=== PATIENT | female | born 1955 | race Caucasian/White ===

== ENCOUNTER → 2016-04-26 | Outpatient (CLI) | payer MEDICARE, OTHER ==
--- NOTE | 2016-04-26 14:46 | MR ---
MRI brain without contrast HISTORY: Headaches, R 51 Multiplanar multisequence imaging through the brain. No comparisons There is no restricted diffusion. There is no hemorrhage or hydrocephalus. There are normal vascular flow voids. Mild inflammatory change present in the maxillary and sphenoid sinuses, ethmoid air cells , mastoids on the left. There is no cerebellopontine angle mass, corpus callosum, pituitary, cervical medullary junction are within normal limits. Scattered hyperintensities are present within the deep white matter, subcortical white matter, approximately 5 in number on inversion recovery and T2-weight ed sequences. The orbits show symmetric appearance. IMPRESSION: Nonspecific white matter demyelination may be related to chronic small vessel ischemia, h ypertension, migraine headaches, follow-up as indicated. Mild sinus disease.
== END | disposition home or self-care (01) ==
LOC: RADMRIMAIN 10:00
PROVIDERS: ATTEND Nurse Practitioner Acute Care
DX: G37.9 Demyelinating disease of central nervous system, unspecified (principal)
CPT/HCPCS: 70551

== ENCOUNTER → 2016-04-27 | Outpatient (CLI) | payer MEDICARE, OTHER ==
--- NOTE | 2016-04-27 11:19 | MR ---
EXAMINATION TYPE: MR garrison/lsgarret wo con DATE OF EXAM: 04/27/2016 10:59 AM COMPARISON: NONE HISTORY: cervicalgia, lumbago per order. Headache with neck pain causing pain or weakness in both arm s and fingers per years per patient. Low back pain for years causing pain into bilateral buttocks and left side per patient. TECHNIQUE: Multiplanar, multisequence imaging of the cervical and lumbar spine are performed without IV contrast. FINDINGS: C-SPINE: FINDINGS: Sagittal images of the cervical spine show the craniocervical junction to appear within nor mal limits. The cervical and upper thoracic spinal cord is normal in course, caliber, and signal. Th ere is subtle grade 1 retrolisthesis of C5 on C6. Vertebral body heights are maintained. There is mod erate disc space narrowing C5-C6 and C6-C7 levels with mild to moderate spurring. Small posterior di sc herniations are seen at these levels on sagittal images. The bone marrow signal intensity is withi n normal limits. Axial images at C2-C3 level to appear within normal limits. Axial images at C3-C4 level show small left paracentral disc protrusion minimally effacing anterior t hecal sac, bilateral neural foramina remain patent. Axial images at C4-C5 level show left-sided uncovertebral facet degenerative changes causing mild to moderate left-sided neural foraminal narrowing. Right-sided neural foramen is patent. Spinal canal is preserved. Axial images at the C5-C6 level show spondylolisthesis with broad-based posterior disc protrusion. Th ere is effacement of the anterior thecal sac. Marginal spurring is also present contributing to mild to moderate left and moderate to severe right-sided neural foraminal narrowing. Axial images at the C6-C7 level show broad-based posterior disc protrusion mildly effacing anterior t hecal sac and causing asymmetric mild to moderate left-sided neural foraminal narrowing. Right-sided neural foramen is patent. Some marginal spurring is also present. Axial images at C7-T1 level are felt within normal limits. IMPRESSION: Multilevel degenerative changes in the cervical spine as detailed above with most pronoun beth findings noted at C5-C6 level. L-SPINE: Sagittal images of the lumbar spine show vertebral body heights and alignment to appear satisfactory. Multilevel disc desiccation is seen but disc space heights are fairly well-maintained there is incre ased signal posteriorly consistent with annular tear L5-S1 level on sagittal image 5. Small posterior disc herniation is present at this level on sagittal images. The conus medullaris is slightly lower in position ending at L1-L2 disc space level. No suspicious clumping of lumbosacral nerve roots is pr esent. The bone marrow signal intensity is overall slightly heterogeneous with some small scattered h emangiomas felt present. No significant spurring is seen. There is 1.2 cm Tarlov cyst posterior S2 ve rtebral body level on sagittal image 8 noted. Axial images at the T12-L1 level shows mild broad disc bulge with increased signal posteriorly consis tent with annular tear. There is minimal effacement of the anterior thecal sac. Bilateral neural fora rosaele are patent.. Axial images at the L1-L2,and L2-L3 levels show mild facet degenerative changes bilaterally otherwise are felt within normal limits. Axial images at the L3-L4 and L4-L5 level show mild to moderate facet degenerative changes bilaterall y but spinal canal is preserved and bilateral neural foramina are patent. Axial images at the L5-S1 level show central disc protrusion but spinal canal is preserved and bilate ral neural foramina are patent. Mild facet degenerative changes are present bilaterally at this level . IMPRESSION: Multilevel degenerative changes in the lumbar spine with findings most pronounced at L5-S 1 level seen. No significant herniation or nerve effacement is identified to account for patient's bi lateral radiculopathy type symptoms however
== END | disposition home or self-care (01) ==
LOC: RADMRIMAIN 10:05
PROVIDERS: ATTEND Nurse Practitioner Acute Care
DX: M50.21 Other cervical disc displacement, high cervical region (principal); M50.222 Other cervical disc displacement at C5-C6 level; M50.223 Other cervical disc displacement at C6-C7 level; M99.71 Connective tissue and disc stenosis of intervertebral foramina of cervical region; M43.12 Spondylolisthesis, cervical region; M51.27 Other intervertebral disc displacement, lumbosacral region; Z88.2 Allergy status to sulfonamides
CPT/HCPCS: 72141; 72148

== ENCOUNTER 2016-05-13 22:36 | Emergency (ER) | payer MEDICARE, OTHER ==
[2016-05-13] MEDS ORDERED: KETOROLAC 30 MG/ML 1 ML VIAL IVP STA (23:20)
[2016-05-13] MEDS ORDERED: ONDANSETRON 4 MG/2 ML VIAL IVP STA (23:20)
[2016-05-13] MEDS ORDERED: SODIUM CHLORIDE 0.9% 1,000 ML IV STA (23:20)
[2016-05-13] MEDS ORDERED: HYDROmorphone 1 MG/ML 1 ML SYRINGE IVP STA (23:20)
--- NOTE | 2016-05-13 23:21 | ED ---
Abdominal Pain HPI <ScottValentin - Last Filed: 05/14/16 03:01> - General Source: patient, family, RN notes reviewed Mode of arrival: ambulatory Limitations: no limitations <Margarita Rutledge - Last Filed: 05/14/16 10:30> - General Chief Complaint: Abdominal Pain Stated Complaint: Back Pain/with vomiting Time Seen by Provider: 05/13/16 23:00 - History of Present Illness Initial Comments: Patient is a 7-year-old male chief complaint of right sided back pain. Patient reports that she has a history of kidney stones. Patient reports that has been a few months and she's had scans. Patient reports that she's had this right sided back pain for the past 4 days. She reports that the pain is unmoving. She states that she was seen at [facility] yesterday and no urine showed any blood and lab work was negative. Patient was advised follow-up with her primary care provider. Patient reports the pain got worse. She states that she does see a crystal machining coordinator at [place]. She states she is also vomited a few times today. Patient reports she's had normal bowel movements. (Margarita Rutledge) - Related Data Home Medications Medication Instructions Recorded Confirmed Citalopram Hydrobromide [CeleXA] 30 mg PO DAILY 05/13/16 05/13/16 Levothyroxine Sodium [Levoxyl] 50 mcg PO DAILY 05/13/16 05/13/16 Ondansetron Odt [Zofran Odt] 4 mg PO Q8HR PRN 05/13/16 05/13/16 Topiramate [Topamax] 25 mg PO BID 05/13/16 05/13/16 oxyCODONE-APAP 5-325MG [Percocet 1 tab PO Q6HR PRN 05/13/16 05/13/16 5-325 mg] Previous Rx's Medication Instructions Recorded HYDROcodone/APAP 10-325MG [[place] 1 tab PO Q6H PRN #15 tab 05/14/16 10-325] Ketorolac [Toradol] 10 mg PO Q6HR #20 tab 05/14/16 Ondansetron [Zofran] 4 mg PO Q8HR PRN #8 tab 05/14/16 Allergies Allergy/AdvReac Type Severity Reaction Status Date / Time Sulfa (Sulfonamide Allergy Unknown Verified 05/13/16 22:48 Antibiotics) Childhood Review of Systems ROS Other: All systems not noted in ROS Statement are negative. <Valentin Chavez - Last Filed: 05/14/16 03:01> ROS Other: All systems not noted in ROS Statement are negative. <Margarita Rutledge - Last Filed: 05/14/16 10:30> ROS Statement: Those systems with pertinent positive or pertinent negative responses have been documented in the HPI. Past Medical History Additional Past Medical History / Comment(s): migraines, kidney stones History of Any Multi-Drug Resistant Organisms: None Reported Past Surgical History: Hysterectomy Additional Past Surgical History / Comment(s): lithrotripsy, polyps removed from nose and throat, Past Psychological History: Depression Smoking Status: Current every day smoker Past Alcohol Use History: None Reported Past Drug Use History: None Reported <Margarita Rutledge - Last Filed: 05/14/16 10:30> General Exam Limitations: no limitations <Margarita Rutledge - Last Filed: 05/14/16 10:30> Course <Valentin Chavez - Last Filed: 05/14/16 03:01> <Margarita Rutledge - Last Filed: 05/14/16 10:30> Vital Signs 05/13/16 05/13/16 05/14/16 22:44 23:57 01:07 Temperature 98.1 F 97.6 F Pulse Rate 73 75 67 Respiratory 20 16 16 Rate Blood Pressure 115/58 128/57 100/62 O2 Sat by Pulse 97 96 100 Oximetry 05/14/16 03:26 Temperature 97.8 F Pulse Rate 80 Respiratory 16 Rate Blood Pressure 122/72 O2 Sat by Pulse 96 Oximetry - Reevaluation(s) Reevaluation #1: 05/14/16 03:01 I did personally discuss the findings with the patient and her . CAT scan does show evidence of a 1 cm stone in the right ureter with smaller stones proximal. Patient pain is much improved at this time we did have a long discussion regarding options which included being admitted here to our urology service for keeping the follow-up appointment in [address] Bates at [facility] in [place], [place]. The patient has chosen to be discharged and follow-up with her doctor and she will return when necessary. She will get a copy of the CAT scan and report to take with them. Prescription for anti- inflammatory as well as narcotic pain medication be used when necessary she states she has plenty of Zofran at home. (Valentin Chavez) Medical Decision Making - Lab Data Result diagrams: 05/13/16 23:20 05/13/16 23:20 <Valentin Chavez - Last Filed: 05/14/16 03:01> - Lab Data Result diagrams: 05/13/16 23:20 05/13/16 23:20 - Radiology Data Radiology results: report reviewed <Margarita Rutledge - Last Filed: 05/14/16 10:30> - Medical Decision Making Patient is a 7-year-old female chief complaint of right flank pain for the past 3 days. She's had an controllable vomiting and nausea since then. She reports she has a history of kidney stones. CT of abdomen and pelvis reveals a 1 cm stone at the ureter junction. Patient reports that this is consistent with her pain. She reports it has not moved in the past 2 days. Patient reports that she does see a urologist at [facility]. I discussed this case with Dr. Chavez. Patient does have an elevated white count of 14. No evidence of kidney damage at this time. CT abdomen and pelvis also shows evidence of hydronephrosis. Patient elects to return home and follow up with her urology appointment on Sunday. PAtient had a converstation with DR. Chavez and made this discision. REturn parameteres discussed. Patient understands treatment plan will comply. (Margarita Rutledge) - Lab Data Lab Results 05/13/16 05/13/16 05/14/16 Range/Units 23:20 23:20 01:58 WBC 14.0 H (3.8-10.6) k/uL RBC 4.12 (3.80-5.40) m/uL Hgb 13.1 (11.4-16.0) gm/dL Hct 40.1 (34.0-46.0) % MCV 97.4 (80.0-100.0) fL MCH 31.8 (25.0-35.0) pg MCHC 32.6 (31.0-37.0) g/dL RDW 13.0 (11.5-15.5) % Plt Count 196 (150-450) k/uL Neutrophils % 88 % Lymphocytes % 6 % Monocytes % 5 % Eosinophils % 0 % Basophils % 0 % Neutrophils # 12.4 H (1.3-7.7) k/uL Lymphocytes # 0.8 L (1.0-4.8) k/uL Monocytes # 0.7 (0-1.0) k/uL Eosinophils # 0.0 (0-0.7) k/uL Basophils # 0.0 (0-0.2) k/uL Sodium 138 (137-145) mmol/L Potassium 4.1 (3.5-5.1) mmol/L Chloride 104 (98-107) mmol/L Carbon Dioxide 23 (22-30) mmol/L Anion Gap 11 mmol/L BUN 12 (7-17) mg/dL Creatinine 1.02 (0.52-1.04) mg/dL Est GFR (MDRD) Af Amer >60 (>60 ml/min/1.73 sqM) Est GFR (MDRD) Non-Af 55 (>60 ml/min/1.73 sqM) Glucose 144 H (74-99) mg/dL Calcium 9.1 (8.4-10.2) mg/dL Total Bilirubin 0.5 (0.2-1.3) mg/dL AST 18 (14-36) U/L ALT 33 (9-52) U/L Alkaline Phosphatase 93 (38-126) U/L Total Protein 6.5 (6.3-8.2) g/dL Albumin 3.7 (3.5-5.0) g/dL Amylase <30 L (30-110) U/L Lipase 71 (23-300) U/L Urine Color Yellow Urine Appearance Clear (Clear) Urine pH 6.0 (5.0-8.0) Ur Specific [place] 1.012 (1.001-1.035) Urine Protein Negative (Negative) Urine Glucose (UA) Negative (Negative) Urine Ketones 1+ H (Negative) Urine Blood Small H (Negative) Urine Nitrate Negative (Negative) Urine Bilirubin Negative (Negative) Urine Urobilinogen <2.0 (<2.0) mg/dL Ur Leukocyte Esterase Small H (Negative) Urine RBC 25 H (0-5) /hpf Urine WBC 15 H (0-5) /hpf Ur Squamous Epith Cells 3 (0-4) /hpf Urine Bacteria Rare H (None) /hpf Urine Mucus Rare H (None) /hpf - Radiology Data Multiple non obstructing stones in both kidneys. 1cm stone at right URJ with right hydronephrosis. (Margarita Rutledge) Disposition <Valentin Chavez - Last Filed: 05/14/16 03:01> Time of Disposition: 02:58 <Margarita Rutledge - Last Filed: 05/14/16 10:30> Clinical Impression: Nephrolithiasis, Hydronephrosis Disposition: HOME SELF-CARE Condition: Good Instructions: Kidney Stones (ED), Renal Colic (ED) Additional Instructions: advised to follow up with crystal machining coordinator and urologist as soon as possible. Return to the [facility] if any alarming symptoms occur. Prescriptions: HYDROcodone/APAP 10-325MG [Ellington 10-325] 1 tab PO Q6H PRN #15 tab PRN Reason: Pain Ketorolac [Toradol] 10 mg PO Q6HR #20 tab Ondansetron [Zofran] 4 mg PO Q8HR PRN #8 tab PRN Reason: Nausea And Vomiting Referrals: David Hayes DO [Primary Care Provider] - 1-2 days
[2016-05-13 23:52] LABS: Basophils % (A) 0 %; CH 32.4; CHCM 33.5; Eosinophils % (A) 0 %; HCT 40.1 % (34.0-46.0); HDW 2.52; HGB 13.1 gm/dL (11.4-16.0); Luc # (Auto) 0.09; Luc % (Auto) 1; Lymphocytes # (A) 0.8 k/uL (1.0-4.8); Lymphocytes % (A) 6 %; MCH 31.8 pg (25.0-35.0); MCHC 32.6 g/dL (31.0-37.0); MCV 97.4 fL (80.0-100.0); Mean Platelet Volume 9.6; Monocytes # (A) 0.7 k/uL (0-1.0); Monocytes % (A) 5 %; Neutrophils # (A) 12.4 k/uL (1.3-7.7); Neutrophils % (A) 88 %; RBC 4.12 m/uL (3.80-5.40)
[2016-05-13 23:59] VITALS: RESP 16
[2016-05-14 00:01] LABS: ALT 33 U/L (9-52); AST 18 U/L (14-36); Alkaline Phosphatase 93 U/L (38-126); Amylase <30 U/L (30-110); Anion Gap 11 mmol/L; Blood Urea Nitrogen 12 mg/dL (7-17); Calcium 9.1 mg/dL (8.4-10.2); Carbon Dioxide 23 mmol/L (22-30); Chloride 104 mmol/L (98-107); Glucose 144 mg/dL (74-99); Non-African American GFR(MDRD) 55 (>60 ml/min/1.73 sqM); Potassium 4.1 mmol/L (3.5-5.1); Sodium 138 mmol/L (137-145); Total Bilirubin 0.5 mg/dL (0.2-1.3); Total Protein 6.5 g/dL (6.3-8.2)
--- NOTE | 2016-05-14 01:49 | CT ---
EXAMINATION TYPE: CT abdomen pelvis wo con DATE OF EXAM: 05/14/2016 12:22 AM COMPARISON: NONE HISTORY: right flank pain CT DLP: 221.30 mGycm Automated exposure control for dose reduction was used. TECHNIQUE: Helical acquisition of images was performed from the lung bases through the pelvis. FINDINGS: LUNG BASES: Mild scarring and atelectasis in both lung bases. LIVER/GB: There is mild hepatomegaly. Gallbladder appears grossly unremarkable. PANCREAS: No significant abnormality is seen. SPLEEN: No significant abnormality is seen. ADRENALS: No significant abnormality is seen. KIDNEYS: Right kidney showed multiple nonobstructing opaque stones largest nonobstructing stone measuring 8 mm in the axial image 45. There is evidence of obstructing 1 cm stone in the proximal right ureter just below the UPJ with selena cent smaller 2 mm calculus. There is also evidence of 3 small calculi in the right renal pelvis with the largest stone measuring 5 mm. There is moderate right hydronephrosis. Distal right ureter showed no significant obstructing stones at present. Left kidney showed multiple nonobstructing opaque stones with the largest stone measuring 9 mm in the axial image 55. No hydronephrosis or hydroureter is noted on the left side. RETROPERITONEAL ADENOPATHY: None visualized REPRODUCTIVE ORGANS: Uterus is probably surgically absent. URINARY BLADDER: No significant abnormality is seen. PELVIC ADENOPATHY: None visualized. OSSEOUS STRUCTURES: Mild degenerative changes in the thoracal lumbar spine. BOWEL: No significant abnormality is seen. Visualized appendix is gas-filled and appears unremarkable. OTHER: Mild diffuse atherosclerotic calcification is noted in the abdominal aorta and iliac arteries. IMPRESSION: 1. THERE IS MODERATE right hydronephrosis with multiple obstructing stones in the proximal right uret er with the largest stone measuring 1 cm in the proximal right ureter just below the level of right U PJ. 2. Multiple nonobstructing opaque stones in both kidneys. 3. Visualized appendix appears unremarkable. 4. Hysterectomy changes. A phone report is given to Margarita Rutledge the PA at the time of the dictation.
[2016-05-14 02:02] LABS: Appearance,Urine Clear (Clear); Bacteria,Urine Rare /hpf; Bilirubin,Urine Negative (Negative); Glucose,Urine (UA) Negative (Negative); Ketones,Urine 1+ (Negative); Leukocyte Esterase,Urine Small (Negative); Mucus,Urine Rare /hpf; Nitrite,Urine Negative (Negative); Particle Count 1801; Protein,Urine Negative (Negative); RBC,Urine 25 /hpf (0-5); Specific Gravity,Urine 1.012 (1.001-1.035); Squamous Epithelial Cell,Urine 3 /hpf (0-4); UA Billing (MACRO vs. MICRO) MICRO; Urobilinogen,Urine <2.0 mg/dL (<2.0); WBC,Urine 15 /hpf (0-5)
[2016-05-14] MEDS ORDERED: KETOROLAC 30 MG/ML 1 ML VIAL IVP STA (02:57)
[2016-05-14] MEDS ORDERED: HYDROmorphone 1 MG/ML 1 ML SYRINGE IVP STA (02:57)
[2016-05-14] MEDS ORDERED: ONDANSETRON 4 MG ODT STARTER PACK 2 TAB BTL PO STA (03:07)
[2016-05-14 03:27] VITALS: BP 122/72; PULSE 80; TEMP 97.8
== END 2016-05-14 03:28 | disposition home or self-care (01) ==
LOC: EC 22:36
DX: N13.2 Hydronephrosis with renal and ureteral calculous obstruction (principal); G43.909 Migraine, unspecified, not intractable, without status migrainosus; F32.9 Major depressive disorder, single episode, unspecified; F17.200 Nicotine dependence, unspecified, uncomplicated; Z79.899 Other long term (current) drug therapy; Z88.2 Allergy status to sulfonamides
CPT/HCPCS: 36415; 80053; 82150; 83690; 85025; 81001; 74176; 99284; 96374; 96375 ×2; 96376 ×2; J2405; J1885 ×2; J1170 ×2; S0119

== ENCOUNTER → 2016-06-27 | Outpatient (CLI) | payer MEDICARE, OTHER ==
[2016-06-27 13:38] LABS: CH 32.1; CHCM 32.7; HCT 41.1 % (34.0-46.0); HDW 2.35; HGB 13.5 gm/dL (11.4-16.0); MCH 32.5 pg (25.0-35.0); MCV 98.6 fL (80.0-100.0); RBC 4.17 m/uL (3.80-5.40); RDW 13.4 % (11.5-15.5); WBC 7.4 k/uL (3.8-10.6)
[2016-06-27 13:49] LABS: Appearance,Urine Cloudy (Clear); Bacteria,Urine Rare /hpf; Bilirubin,Urine Negative (Negative); Glucose,Urine (UA) Negative (Negative); Ketones,Urine Negative (Negative); Leukocyte Esterase,Urine Large (Negative); Mucus,Urine Rare /hpf; Nitrite,Urine Negative (Negative); PH, Urine 5.5 (5.0-8.0); Particle Count 10669; Protein,Urine 1+ (Negative); RBC,Urine >182 /hpf (0-5); Specific Gravity,Urine 1.014 (1.001-1.035); Squamous Epithelial Cell,Urine <1 /hpf (0-4); UA Billing (MACRO vs. MICRO) MICRO; Urobilinogen,Urine <2.0 mg/dL (<2.0); WBC,Urine 45 /hpf (0-5)
[2016-06-27 13:59] LABS: ALT 36 U/L (9-52); AST 24 U/L (14-36); Alkaline Phosphatase 84 U/L (38-126); Anion Gap 9 mmol/L; Blood Urea Nitrogen 17 mg/dL (7-17); Calcium 9.5 mg/dL (8.4-10.2); Carbon Dioxide 27 mmol/L (22-30); Chloride 109 mmol/L (98-107); Glucose 78 mg/dL (74-99); Non-African American GFR(MDRD) >60 (>60 ml/min/1.73 sqM); Potassium 4.5 mmol/L (3.5-5.1); Sodium 145 mmol/L (137-145); Total Bilirubin 0.6 mg/dL (0.2-1.3); Total Protein 6.8 g/dL (6.3-8.2)
== END ==
LOC: LABWHC1 12:47
PROVIDERS: ATTEND Psychiatry & Neurology Psychiatry
DX: N39.0 Urinary tract infection, site not specified (principal)
CPT/HCPCS: 36415; 80053; 81001; 84439; 84443; 85027; 87086

== ENCOUNTER → 2016-12-13 | Outpatient (CLI) | payer MEDICARE, OTHER ==
--- NOTE | 2016-12-13 12:50 | P.HPOB ---
History of Present Illness H&P Date: 12/13/16 Chief Complaint: The patient is here for her routine gynecologic examination and mammogram. This is a 61-year-old with an LMP of 1985 who is status post ANG and unilateral oophorectomy for benign reasons. The patient had a small wart removed from the posterior aspect of the vaginal opening one year ago. She has not had any problem with this since then. She is without gynecologic complaints. Review of Systems Respiratory: she has occasional seasonal allergies. She denies cardiac or G.I. problems. Past Medical History Past Medical History: Thyroid Disorder (Hypothyroidism) Additional Past Medical History / Comment(s): migraines, kidney stones History of Any Multi-Drug Resistant Organisms: None Reported Past Surgical History: Hysterectomy (ANG with unilateral oophorectomy.) Additional Past Surgical History / Comment(s): lithrotripsy, polyps removed from nose and throat, colonoscopy in 2016 per the patient. Shoulder surgery in 2012 and tubal ligation at age 22. 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 She has history of a wart in the genital area but has no other history of STDs. Medications and Allergies Home Medications Medication Instructions Recorded Confirmed Type Citalopram Hydrobromide [CeleXA] 30 mg PO DAILY 05/13/16 05/13/16 History Levothyroxine Sodium [Levoxyl] 75 mcg PO DAILY 05/13/16 12/13/16 History Aspirin [Adult Low Dose Aspirin EC] 81 mg PO 12/13/16 History SUMAtriptan SUCCINATE [Imitrex] 100 mg PO 12/13/16 History Allergies Allergy/AdvReac Type Severity Reaction Status Date / Time Sulfa (Sulfonamide Allergy Unknown Verified 05/13/16 22:48 Antibiotics) Childhood Exam - Vital Signs Vital signs: Blood pressure 92/58, height 5 feet 2 1/2 inches, weight 150 pounds, temperature 98.0, pulse 85 This is a well-developed well-nourished white female who is alert and oriented times 3 in no acute distress. HEENT: Within normal limits. NECK: Supple without mass or thyromegaly. CHEST AND LUNGS: Clear to auscultation. HEART: Regular rate and rhythm. BREASTS: Are without mass or discharge. AXILLARY EXAM: Negative for adenopathy. BACK: Negative for CVA tenderness. ABDOMEN: Soft, nontender, without palpable masses. PELVIC EXAM: External genitalia appears normal with mild atrophy. Vagina appears normal with mild atrophy. There is no evidence of prolapse. Bimanual examination is negative for mass or tenderness. RECTAL EXAM: Rectovaginal exam is negative for mass or tenderness and is negative for occult blood. EXTREMITIES: Nontender. IMPRESSION: 1. 61-year-old menopausal female who is status post ANG and unilateral oophorectomy which was done for benign reasons. 2. Normal gynecologic exam. PLAN: 1. Pap smears have been discontinued. 2. Self breast examination was discussed. 3. Mammogram will be done today. 4. Osteoporosis prevention was discussed. Bone density testing was recommended in order was given to the patient for this. 5. She will return in one year.
--- NOTE | 2016-12-15 07:54 | MM ---
Reason for exam: screening (asymptomatic). Last mammogram was performed 1 year and 8 months ago. History: Patient is postmenopausal. Family history of breast cancer in paternal aunt. Physical Findings: A clinical breast exam by your physician is recommended on an annual basis and results should be correlated with mammographic findings. MG 3D Screening Mammo W/Cad Bilateral CC and MLO view(s) were taken. Prior study comparison: April 05, 2015, bilateral MG screening mammo w CAD. February 23, 2014, bilateral MG screening mammo w CAD. The breast tissue is heterogeneously dense. This may lower the sensitivity of mammography. There is chronic nodularity in the left breast stable since 2009. No significant changes when compared with prior studies. ASSESSMENT: Benign, BI-RAD 2 RECOMMENDATION: Routine screening mammogram of both breasts in 1 year.
== END | disposition home or self-care (01) ==
LOC: WWCWWP 11:13
PROVIDERS: ATTEND Obstetrics & Gynecology
DX: Z12.31 Encounter for screening mammogram for malignant neoplasm of breast (principal)
CPT/HCPCS: 77063; G0202

== ENCOUNTER → 2018-04-30 | Outpatient (CLI) | payer MEDICARE, OTHER ==
[2018-04-30 12:57] VITALS: BP 107/68; PULSE 71; RESP 18; TEMP 97.9; BMI 27.4
--- NOTE | 2018-04-30 13:32 | P.HPOB ---
History of Present Illness H&P Date: 04/30/18 Chief Complaint: The patient is here for her routine gynecologic exam and mammogram. This is a 63-year-old G2 PII with an LMP of 1985. The patient is status post AGN and unilateral oophorectomy done for benign reasons. The patient is without gynecologic complaints. Review of Systems The patient's weight has been stable over the last year. She denies respiratory , cardiac, or G.I. problems. Past Medical History Past Medical History: Thyroid Disorder (Hypothyroid) Additional Past Medical History / Comment(s): migraines, kidney stones. 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 ANG and unilateral oophorectomy in 1985 for endometriosis. Possible JANAE exposure per the patient. No history of cervical abnormalities. History of Any Multi-Drug Resistant Organisms: None Reported Past Surgical History: Hysterectomy (ANG with unilateral oophorectomy) Additional Past Surgical History / Comment(s): lithrotripsy, polyps removed from nose and throat, colonoscopy in 2015 per the patient. Shoulder surgery in 2012 and tubal ligation at age 22. Past Psychological History: Depression Smoking Status: Current every day smoker (Half pack per day) Past Alcohol Use History: None Reported Past Drug Use History: None Reported Additional History: She has been since 1974 and is retired. - Past Family History Mother Family Medical History: Diabetes Mellitus, Myocardial Infarction ([place]) Additional Family Medical History / Comment(s): Aortic aneurysm. Sister(s) Family Medical History: Cancer (Breast cancer) Medications and Allergies Home Medications Medication Instructions Recorded Confirmed Type Citalopram Hydrobromide [CeleXA] 30 mg PO DAILY 05/13/16 04/30/18 History Levothyroxine Sodium [Levoxyl] 75 mcg PO DAILY 05/13/16 04/30/18 History Aspirin [Adult Low Dose Aspirin EC] 81 mg PO 12/13/16 History SUMAtriptan SUCCINATE [Imitrex] 100 mg PO PRN 12/13/16 History Allergies Allergy/AdvReac Type Severity Reaction Status Date / Time Sulfa (Sulfonamide Allergy Unknown Verified 04/30/18 12:50 Antibiotics) Childhood Exam Vital Signs Temp Pulse Resp BP Pulse Ox 04/30/18 12:52 97.9 F 71 18 107/68 99 Height 5'2", weight 150 pounds, BMI 28. This is a well-developed well-nourished white female who is alert and oriented times 3 in no acute distress. HEENT: Within normal limits. NECK: Supple without mass or thyromegaly. CHEST AND LUNGS: Clear to auscultation. HEART: Regular rate and rhythm. BREASTS: Are without mass or discharge. AXILLARY EXAM: Negative for adenopathy. BACK: Negative for CVA tenderness. ABDOMEN: Soft, nontender, without palpable masses. PELVIC EXAM: External genitalia appears normal with mild atrophy. Vagina appears normal with mild atrophy. There is no evidence of prolapse. Bimanual examination is negative for mass or tenderness. RECTAL EXAM: Rectovaginal exam is negative for mass or tenderness and is negative for occult blood. EXTREMITIES: Nontender. IMPRESSION: 1. 63-year-old menopausal female status post ANG and unilateral oophorectomy for benign reasons, with normal gynecologic exam. 2. Family history of breast cancer in her sister. PLAN: 1. Pap smears have been discontinued. 2. Self breast awareness was discussed with the patient. 3. Screening mammogram will be done today. 4. Osteoporosis prevention was discussed. I have stressed the importance of adequate calcium, vitamin D and regular exercise. Recommended amounts of calcium and vitamin D were also discussed. I have recommended bone density screening since it has been several years. We will plan on doing this next year at her annual examination. 5. I have recommended that she quit smoking. 6. She will return in one year.
--- NOTE | 2018-05-04 09:29 | MM ---
Reason for exam: screening (asymptomatic). Last mammogram was performed 1 year and 5 months ago. History: Patient is postmenopausal. Family history of breast cancer in paternal aunt and breast cancer in sister at age 67. Took hormonal contraceptives for 3 years. Took estrogen for 3 years. MG 3D Screening Mammo W/Cad Bilateral CC and MLO view(s) were taken. Prior study comparison: December 13, 2016, bilateral MG 3d screening mammo w/cad. April 05, 2015, bilateral MG screening mammo w CAD. The breast tissue is heterogeneously dense. This may lower the sensitivity of mammography. No discrete abnormality. No significant changes when compared with prior studies. ASSESSMENT: Negative, BI-RAD 1 RECOMMENDATION: Routine screening mammogram of both breasts in 1 year.
== END | disposition home or self-care (01) ==
LOC: WWCWWP 12:25
PROVIDERS: ATTEND Obstetrics & Gynecology
DX: Z12.31 Encounter for screening mammogram for malignant neoplasm of breast (principal)
CPT/HCPCS: 77063; 77067

== ENCOUNTER → 2018-05-15 | Outpatient (CLI) | payer MEDICARE, OTHER ==
--- NOTE | 2018-05-16 00:36 | MR ---
EXAMINATION TYPE: MR knee RT wo con DATE OF EXAM: 05/15/2018 COMPARISON: None HISTORY: Right Knee Pain and Swelling x7 Years, Recent Cortisone Injection TECHNIQUE: Multiplanar, multisequence imaging of the right knee is performed without IV contrast. FINDINGS: The anterior and posterior cruciate ligaments are intact. There is horizontal defect through the post erior horn of the medial meniscus that extends to the inferior surface. The other menisci appear inta ct. There is mild knee joint effusion. There is a large popliteal cyst that measures 6 cm in length. The collateral ligaments appear intact. There is patchy increased signal in the medial tibial condyle consistent with multiple areas of bone bruise. I see no fracture line. There is a 1 cm area of incre ased signal in the inferior patella consistent with degenerative cyst formation and bone bruise. The area of bruising measures overall 1.5 cm. IMPRESSION: There is oblique and horizontal tear of the posterior horn medial meniscus. Large popliteal cyst with knee joint effusion. The Degenerative cyst formation and bone bruising in the inferior patella. Mild bone bruise and edema involving medial tibial condyle. No fracture seen.
== END | disposition home or self-care (01) ==
LOC: RADMRIMAIN 21:03
PROVIDERS: ATTEND Orthopaedic Surgery
DX: S83.241A Other tear of medial meniscus, current injury, right knee, initial encounter (principal); S80.01XA Contusion of right knee, initial encounter; M71.21 Synovial cyst of popliteal space [Baker], right knee

== ENCOUNTER → 2018-05-22 | Outpatient (CLI) | payer MEDICARE, OTHER ==
[2018-05-22 12:05] LABS: Basophils % (A) 1 %; Eosinophils # (A) 0.1 k/uL (0-0.7); Eosinophils % (A) 2 %; HCT 43.9 % (34.0-46.0); HGB 14.5 gm/dL (11.4-16.0); Lymphocytes # (A) 1.4 k/uL (1.0-4.8); Lymphocytes % (A) 24 %; MCH 32.9 pg (25.0-35.0); MCHC 33.1 g/dL (31.0-37.0); MCV 99.3 fL (80.0-100.0); Monocytes # (A) 0.3 k/uL (0-1.0); Monocytes % (A) 5 %; Neutrophils # (A) 3.9 k/uL (1.3-7.7); Neutrophils % (A) 67 %; Platelet Count 146 k/uL (150-450); RBC 4.42 m/uL (3.80-5.40); WBC 5.8 k/uL (3.8-10.6)
[2018-05-22 12:12] LABS: Potassium 4.7 mmol/L (3.5-5.1)
== END ==
LOC: LABPAT 10:39
PROVIDERS: ATTEND Orthopaedic Surgery
DX: Z01.818 Encounter for other preprocedural examination (principal); Z01.812 Encounter for preprocedural laboratory examination; M23.91 Unspecified internal derangement of right knee
CPT/HCPCS: 36415; 80051; 85025; 93005

== ENCOUNTER 2018-05-31 08:50 | Day surgery (SDC) | payer MEDICARE, OTHER ==
[2018-05-29 14:02] VITALS: BMI 26.2
--- NOTE | 2018-05-30 10:33 | HP ---
HISTORY AND PHYSICAL CHIEF COMPLAINT: Right knee pain. HISTORY OF PRESENT ILLNESS: The patient is a 63-year-old retired female who presents with progressive right knee pain for the past several months. She notes this started after doing some prolonged walking. She notes medial pain along with intermittent giving way. She has tried medications and an injection with only partial temporary relief. PAST MEDICAL HISTORY: Significant for hypothyroidism and depression. PAST SURGICAL HISTORY: Negative. CURRENT MEDICATIONS: 1. Aspirin. 2. Celexa. 3. Imitrex. 4. Levoxyl. 5. Ibuprofen. ALLERGIES: She has allergies to SULFA. FAMILY HISTORY: Significant for diabetes and cancer. SOCIAL HISTORY: Significant for current tobacco use. REVIEW OF SYSTEMS: Sixteen-point review of systems otherwise reviewed and is noncontributory. PHYSICAL EXAMINATION: On examination, the patient is approximately 5 foot 3 inches, 135 pounds of mesomorphic habitus. HEENT exam is nonfocal. Neck is supple. She has painless passive motion of the right hip. Straight leg raise is negative. Active motion right knee -6 to 114 degrees of flexion. She is tender about the medial joint line. She has a trace effusion. Collaterals are stable, Nataly's negative, Chana's elicits medial pain. Her distal neurovascular exam otherwise appears intact in the right lower extremity. MRI report right knee 05/15/2018 shows a posterior medial meniscal tear along with a medial popliteal Lyn cyst. IMPRESSION: 1. Right knee symptomatic medial meniscal tear. 2. Right knee moderate medial compartment osteoarthrosis. RECOMMENDATIONS: I talked to the patient at length regarding her condition and treatment options. At this point, she is having persistent pain and mechanical symptoms that limit her despite conservative measures. After thorough discussion, she opts to proceed with surgery. We will plan to proceed with arthroscopic evaluation with possible partial medial meniscectomy. Risks and benefits were discussed at length in layman's terms. We will likely perform that as an outpatient procedure. MMODL / IJN: [id number] /
[~2018-05-31 08:50] MED LIST: DEXAMETHASONE SOD PHOSPHATE 10 MG/ML 1 ML VIAL IV ONE; LACTATED RINGERS 1,000 ML IV SCH; LIDOCAINE 1% 20 ML VIAL (10MG/ML) FOR IV START INTRADERMA PRN; MIDAZOLAM (PF) 2 MG/2 ML VIAL IV PRN; ONDANSETRON 4 MG/2 ML VIAL IVP ONE; ceFAZolin 1,000 MG in DEXTROSE/WATER 1 50ML.BAG IVPB ONE
[2018-05-31] MEDS ORDERED: LIDOCAINE 1% INJ 10MG/ML (20 ML MDV) ONE (10:46)
[2018-05-31] MEDS ORDERED: KETOROLAC 30 MG/ML 1 ML VIAL ONE (10:46)
[2018-05-31] MEDS ORDERED: PROPOFOL 10 MG/ML 20 ML VIAL IV ONE (10:46)
[2018-05-31] MEDS ORDERED: fentaNYL (PF) 50 MCG/ML 2 ML AMP ONE (10:46)
[2018-05-31] MEDS ORDERED: MIDAZOLAM 2 MG/2 ML VIAL ONE (10:46)
--- NOTE | 2018-05-31 11:25 | P.OP ---
Date of Procedure: 05/31/18 Preoperative Diagnosis: Right knee internal derangement Postoperative Diagnosis: Right knee posterior medial meniscal tear/middle one third lateral meniscal tear /grade 2 chondral injury distal lateral medial femoral condyle Procedure(s) Performed: Right knee arthroscopic partial medial meniscectomy/partial lateral meniscectomy /medial femoral chondrectomy Anesthesia: DANK Surgeon: Davonte Ugalde Estimated Blood Loss (ml): 10 Pathology: none sent Condition: stable Disposition: PACU Indications for Procedure: The patient's a 63-year-old female who presents with progressive right knee pain and mechanical symptoms despite conservative measures. A discussion of the risks and benefits of operative intervention versus continued conservative measures was made with patient. She opted to proceed with surgery. Operative risks to include infection, neurovascular injury, development of blood clots, possible incomplete resolution of symptoms, possible worsening symptoms and need for subsequent procedures was discussed. Informed consent was obtained. Operative Findings: As below Description of Procedure: The patient was brought to the operating room, and after induction of general anesthesia examined the right knee. Collaterals were stable, Nataly was negative, and posterior drawer was negative. The right lower extremity was prepped and draped in a normal fashion. A superior lateral portal was made through a 3 mm skin incision superior and lateral to the patella. This was used for outflow. A lateral portal was made through a 5 mm vertical skin incision lateral to the patella tendon above the joint line. Diagnostic arthroscopy was performed. On inspection of the medial compartment, and oblique tear involving the posterior horn of the medial meniscus in the white- white junction was noted.. This was debrided back to stable base with straight baskets and a motorized shaver. A grade 2 chondral injury was noted involving the distal lateral portion of the medial femoral condyle with a loose chondral fragment. This was debrided back to stable base with a motorized shaver. On inspection of the notch, the anterior cruciate ligament appeared to be intact. On inspection of the lateral compartment a degenerative tear involving the middle one third of the lateral meniscus in the white-white junction was noted. This was debrided back to stable base with straight baskets and a motorized shaver. On inspection of the patellofemoral articulation there were mild degenerative changes however no loose chondral fragments. The gutters were clear debris. The knee was then thoroughly irrigated. The portals were closed with Steri-Strips. A sterile dressing was applied in addition to a compression stocking. The patient was awoken from general anesthesia and transferred to recovery room in good condition. Blood loss was estimated at 10 mL. No complications were incurred.
[2018-05-31 11:32] VITALS: TEMP 97
[2018-05-31] MEDS: HYDROmorphone 0.5 MG/0.5 ML SYRINGE IVP PRN ×3 (11:50→12:49)
[2018-05-31 12:47] VITALS: RESP 16
[2018-05-31 14:38] VITALS: BP 90/68; PULSE 65
== END 2018-05-31 14:54 | disposition home or self-care (01) ==
LOC: OR 08:50
PROVIDERS: ATTEND Orthopaedic Surgery
DX: S83.241A Other tear of medial meniscus, current injury, right knee, initial encounter (principal); S83.281A Other tear of lateral meniscus, current injury, right knee, initial encounter; S83.31XA Tear of articular cartilage of right knee, current, initial encounter; X58.XXXA Exposure to other specified factors, initial encounter; M17.11 Unilateral primary osteoarthritis, right knee; E03.9 Hypothyroidism, unspecified; F32.9 Major depressive disorder, single episode, unspecified; Z83.3 Family history of diabetes mellitus; F17.210 Nicotine dependence, cigarettes, uncomplicated; G43.909 Migraine, unspecified, not intractable, without status migrainosus; Z79.1 Long term (current) use of non-steroidal anti-inflammatories (NSAID); Z79.82 Long term (current) use of aspirin; Z79.890 Hormone replacement therapy; Z79.899 Other long term (current) drug therapy; Z88.2 Allergy status to sulfonamides
CPT/HCPCS: 29880; J2250; J1100; J2405; J2001; J3010; J1885; J0690; J2704; J1170

== ENCOUNTER → 2018-10-17 | Outpatient (CLI) | payer MEDICARE, OTHER ==
[2018-10-17 13:16] LABS: HCT 43.7 % (34.0-46.0); HGB 14.2 gm/dL (11.4-16.0); MCH 31.8 pg (25.0-35.0); MCHC 32.5 g/dL (31.0-37.0); MCV 97.8 fL (80.0-100.0); Mean Platelet Volume 9.5; Platelet Count 187 k/uL (150-450); RBC 4.46 m/uL (3.80-5.40); RDW 13.7 % (11.5-15.5); WBC 7.9 k/uL (3.8-10.6)
[2018-10-17 13:26] LABS: Appearance,Urine Clear (Clear); Bilirubin,Urine Negative (Negative); Blood,Urine Negative (Negative); Calcium Oxalate Crystals,Urine Few /hpf; Color,Urine Yellow; Glucose,Urine (UA) Negative (Negative); Ketones,Urine Negative (Negative); Leukocyte Esterase,Urine Trace (Negative); Mucus,Urine Rare /hpf; Nitrite,Urine Negative (Negative); PH, Urine 5.5 (5.0-8.0); Protein,Urine Negative (Negative); RBC,Urine 3 /hpf (0-5); Specific Gravity,Urine 1.022 (1.001-1.035); Squamous Epithelial Cell,Urine 6 /hpf (0-4); Urobilinogen,Urine <2.0 mg/dL (<2.0); WBC,Urine 3 /hpf (0-5)
[2018-10-17 19:09] LABS: African American GFR (CKD) 79.4 (60.0-200.0); Albumin 4.1 g/dL (3.80-4.90); Albumin/Globulin Ratio 2.41 (1.60-3.17); Anion Gap 5.1 mmol/L (4.00-12.00); BUN/Creat Ratio 21.11 Ratio (12.00-20.00); Calcium 9.4 mg/dL (8.7-10.3); Carbon Dioxide 25.9 mmol/L (21.6-31.8); Globulin 1.7 g/dL (1.6-3.3); Potassium 4.4 mmol/L (3.5-5.5); Total Bilirubin 0.4 mg/dL (0.2-1.2); Total Protein 5.8 g/dL (6.2-8.2)
[2018-10-17 19:16] LABS: T4, Free (Free Thyroxine) 1.1 ng/dL (0.80-1.80)
== END | disposition home or self-care (01) ==
LOC: LABWHC1 12:07
PROVIDERS: ATTEND Psychiatry & Neurology Psychiatry
DX: R53.83 Other fatigue (principal); Z79.899 Other long term (current) drug therapy
CPT/HCPCS: 36415; 80053; 81001; 84439; 84443; 85027

== ENCOUNTER → 2018-12-30 | Outpatient (CLI) | payer MEDICARE, OTHER ==
[2018-12-30 10:50] LABS: Appearance,Urine Cloudy (Clear); Bilirubin,Urine Negative (Negative); Blood,Urine Trace (Negative); Color,Urine Yellow; Glucose,Urine (UA) Negative (Negative); Ketones,Urine Negative (Negative); Leukocyte Esterase,Urine Trace (Negative); Mucus,Urine Rare /hpf; Nitrite,Urine Negative (Negative); PH, Urine 5.5 (5.0-8.0); Protein,Urine Negative (Negative); RBC,Urine 4 /hpf (0-5); Specific Gravity,Urine 1.019 (1.001-1.035); Squamous Epithelial Cell,Urine 8 /hpf (0-4); Urobilinogen,Urine <2.0 mg/dL (<2.0); WBC,Urine 4 /hpf (0-5)
[2018-12-30 16:53] LABS: Hemoglobin A1C 5.6 % (4.0-6.0)
== END | disposition home or self-care (01) ==
LOC: LABWHC1 08:57
PROVIDERS: ATTEND Psychiatry & Neurology Psychiatry
DX: E11.9 Type 2 diabetes mellitus without complications (principal)
CPT/HCPCS: 36415; 81001; 82947; 83036

== ENCOUNTER → 2020-11-16 | Outpatient (CLI) | payer MEDICARE, OTHER ==
[2020-11-16 11:42] VITALS: BP 107/70; PULSE 76; RESP 18; TEMP 98.6
--- NOTE | 2020-11-16 12:26 | P.HPOB ---
History of Present Illness H&P Date: 11/16/20 Chief Complaint: The patient is here for her routine gynecologic exam and ma mmogram. This is a 65-year-old with an LMP of 1985. She is status post ANG and unilateral oophorectomy for benign reasons. The patient is without gynecologic complaints. Review of Systems The patient has gained 13 pounds over the last 2 years. She denies respiratory, cardiac, or G.I. problems. Past Medical History Past Medical History: GERD/Reflux, Hyperlipidemia, Osteoarthritis (OA), Thyroid Disorder Additional Past Medical History / Comment(s): migraines, kidney stones. 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 History of endometriosis. Possible JANAE exposure per the patient. No history of cervical abnormalities. History of Any Multi-Drug Resistant Organisms: None Reported Past Surgical History: Hysterectomy, Tubal Ligation Additional Past Surgical History / Comment(s): lithrotripsy/stents, polyps ramesh neo from nose and throat. ANG with unilateral oophorectomy in 1985. Past Anesthesia/Blood Transfusion Reactions: Motion Sickness, Postoperative Nausea & Vomiting (PONV) Past Psychological History: Depression Smoking Status: Current every day smoker (1 pack per day.) Past Alcohol Use History: Rare Additional Past Alcohol Use History / Comment(s): has smoked since age 19 Past Drug Use History: None Reported Additional History: She has been since 1974 and is retired. - Past Family History Mother Family Medical History: Diabetes Mellitus, Myocardial Infarction (CT) Additional Family Medical History / Comment(s): Aortic aneurysm. Sister(s) Family Medical History: Cancer Additional Family Medical History / Comment(s): 2 sisters had breast cancer. One sister was BRCA negative, the other is unknown. Father Family Medical History: Cancer Medications and Allergies Home Medications Medication Instructions Recorded Confirmed Type Aspirin [Adult Low Dose Aspirin EC] 81 mg PO DAILY 12/13/16 11/16/20 History SUMAtriptan SUCCINATE [Imitrex] 100 mg PO DIRECTED PRN 12/13/16 11/16/20 History Citalopram Hydrobromide [CeleXA] 30 mg PO DAILY 11/16/20 11/16/20 History Montelukast [Singulair] 10 mg PO HS 11/16/20 11/16/20 History Allergies Allergy/AdvReac Type Severity Reaction Status Date / Time oxybutynin Allergy Anaphylaxis Unverified 11/16/20 11:36 Sulfa (Sulfonamide Allergy Unknown Verified 11/16/20 11:36 Antibiotics) Childhood Exam Vital Signs Temp Pulse Resp BP Pulse Ox 11/16/20 11:38 98.6 F 76 18 107/70 95 Intake and Output 11/15/20 11/16/20 11/16/20 22:59 06:59 14:59 Other: Weight 73.936 kg Height 5 feet 3 inches, weight 163 pounds, BMI 28.9. This is a well-developed well-nourished white female who is alert and oriented times 3 in no acute distress. HEENT: Within normal limits. NECK: Supple without mass or thyromegaly. CHEST AND LUNGS: Clear to auscultation. HEART: Regular rate and rhythm. BREASTS: Are without mass or discharge. AXILLARY EXAM: Negative for adenopathy. BACK: Negative for CVA tenderness. ABDOMEN: Soft, nontender, without palpable masses. PELVIC EXAM: External genitalia appears normal with mild atrophy. Vagina appears normal with mild atrophy. There is no evidence of prolapse. Bimanual examination is negative for mass or tenderness. RECTAL EXAM: Rectovaginal exam is negative for mass or tenderness and is negative for occult blood. EXTREMITIES: Nontender. IMPRESSION: 1. 65-year-old menopausal female status post ANG with unilateral oophorectomy for benign reasons, with normal gynecologic exam. 2. Family history of breast cancer in 2 sisters, one of which tested negative for BRCA gene mutation. PLAN: 1. Pap smears have been discontinued. 2. Self breast awareness was discussed with the patient. 3. Screening mammogram will be done today. 4. Osteoporosis prevention was discussed. I have stressed the importance of adequate calcium, vitamin D and regular exercise. Recommended amounts of calcium and vitamin D were also discussed. Bone density testing was recommended and the order slip was given to the patient for this. 5. I have recommended quitting smoking. We have discussed cutting back and trying to quit altogether. We have discussed many reasons why it is important to do this. 6. Cancer genetics counseling and possible BRCA testing was offered to the patient. She is declining it at this point and will let me know if she changes her mind. 7. She is scheduled for a colonoscopy next month. 8. She was advised to return in one year for her annual well woman exam.
--- NOTE | 2020-11-17 11:40 | MM ---
Reason for exam: screening (asymptomatic). Last mammogram was performed 2 years and 7 months ago. History: Patient is postmenopausal. Family history of breast cancer in paternal aunt and breast cancer in sister at age 67. Took hormonal contraceptives for 3 years. Took estrogen for 3 years. Physical Findings: A clinical breast exam by your physician is recommended on an annual basis and results should be correlated with mammographic findings. MG 3D Screening Mammo W/Cad Bilateral CC and MLO view(s) were taken. Prior study comparison: April 30, 2018, bilateral MG 3d screening mammo w/cad. December 13, 2016, bilateral MG 3d screening mammo w/cad. April 05, 2015, bilateral MG screening mammo w CAD. Finding: There are indeterminate fine, regional calcifications in the lower quadrant, posterior position of the right breast 8cm from the nipple. New finding since April 30, 2018, December 13, 2016, and April 05, 2015. ASSESSMENT: Incomplete: need additional imaging evaluation, BI-RAD 0 RECOMMENDATION: Special view mammogram of the right breast. [facility] will attempt to contact patient to return for supplemental views.
== END ==
LOC: WWCWWP 11:17
PROVIDERS: ATTEND Obstetrics & Gynecology
DX: Z12.31 Encounter for screening mammogram for malignant neoplasm of breast (principal); E78.5 Hyperlipidemia, unspecified; M19.90 Unspecified osteoarthritis, unspecified site; F32.9 Major depressive disorder, single episode, unspecified; G43.909 Migraine, unspecified, not intractable, without status migrainosus; F17.210 Nicotine dependence, cigarettes, uncomplicated; Z79.82 Long term (current) use of aspirin; Z79.899 Other long term (current) drug therapy; Z90.721 Acquired absence of ovaries, unilateral; Z85.3 Personal history of malignant neoplasm of breast; Z88.2 Allergy status to sulfonamides; Z88.8 Allergy status to other drugs, medicaments and biological substances
CPT/HCPCS: 77063; 77067

== ENCOUNTER → 2020-11-25 | Outpatient (CLI) | payer MEDICARE, OTHER ==
--- NOTE | 2020-11-25 11:30 | MM ---
Reason for exam: additional evaluation requested from abnormal screening. Last mammogram was performed less than 1 month ago. History: Patient is postmenopausal. Family history of breast cancer in paternal aunt, breast cancer in sister at age 68, and breast cancer in sister at age 67. Took hormonal contraceptives for 3 years. Took estrogen for 3 years. Physical Findings: Nurse did not find any significant physical abnormalities on exam. MG 3D Work Up W/Cad RT XCCL, MLO, and ML view(s) were taken of the right breast. Prior study comparison: November 16, 2020, bilateral MG 3d screening mammo w/cad. April 30, 2018, bilateral MG 3d screening mammo w/cad. December 13, 2016, bilateral MG 3d screening mammo w/cad. The breast tissue is heterogeneously dense. This may lower the sensitivity of mammography. There are a couple punctate calcifications far posterior inferior and lateral. No suspicious group of microcalcifications. Possibly minimal vascular calcifications. No significant new findings when compared with previous films. These results were verbally communicated with the patient and result sheet given to the patient on 11/25/20. ASSESSMENT: Benign, BI-RAD 2 RECOMMENDATION: Return to routine screening mammogram schedule for both breasts.
== END | disposition home or self-care (01) ==
LOC: RADMAMWWP 10:18
PROVIDERS: ATTEND Obstetrics & Gynecology
DX: R92.2 Inconclusive mammogram (principal); R92.1 Mammographic calcification found on diagnostic imaging of breast; Z78.0 Asymptomatic menopausal state; Z80.3 Family history of malignant neoplasm of breast
CPT/HCPCS: 77065; G0279; 77061

== ENCOUNTER 2020-12-17 07:52 | Day surgery (SDC) | payer MEDICARE, OTHER ==
[2020-12-15 17:28] VITALS: BMI 28.3
[~2020-12-17 07:52] MED LIST changes: -DEXAMETHASONE SOD PHOSPHATE 10 MG/ML 1 ML VIAL IV ONE; -LIDOCAINE 1% 20 ML VIAL (10MG/ML) FOR IV START INTRADERMA PRN; -MIDAZOLAM (PF) 2 MG/2 ML VIAL IV PRN; -ONDANSETRON 4 MG/2 ML VIAL IVP ONE; -ceFAZolin 1,000 MG in DEXTROSE/WATER 1 50ML.BAG IVPB ONE
[2020-12-17 08:24] VITALS: RESP 16; TEMP 97.5
[2020-12-17] MEDS ORDERED: PROPOFOL 10 MG/ML 20 ML VIAL IV ONE (08:37)
--- NOTE | 2020-12-17 08:56 | P.PCN ---
Date of Procedure: 12/17/20 Procedure(s) Performed: BRIEF HISTORY: Patient is a 65-year-old pleasant white female scheduled for an elective colonoscopy as a part of screening for colon cancer and family history of colon cancer diagnosed in her father at age 60. PROCEDURE PERFORMED: Colonoscopy with snare polypectomy. PREOPERATIVE DIAGNOSIS: Screening for colon cancer/family history of colon cancer. IV sedation per Anesthesia. PROCEDURE: After informed consent was obtained, the patient, was brought into the endoscopy unit. IV sedation was administered by Anesthesia under continuous monitoring. Digital rectal examination was normal. Initially the Olympus CF-160 flexible video colonoscope was then inserted in the rectum, gradually advanced into the cecum without any difficulty. Careful examination was performed as the scope was gradually being withdrawn. Ileocecal valve and the appendiceal orifice were visualized and appeared normal. Prep was excellent. Mucosa of the cecum, appeared normal. In the ascending colon there was a 5 mm and 7 mm sessile polyps were by snare polypectomy. In the hepatic flexure there were 2 polyps measuring 3 mm in size removed by snare polypectomy. Rest of the ascending colon, transverse colon, descending colon, sigmoid colon, and rectum appeared normal. The sigmoid colon there were 2 polyps measuring 3 mm in size removed by snare polypectomy. Retroflexion was performed in the rectum and no lesions were seen. The patient tolerated the procedure well. IMPRESSION: 5 mm and 7 mm ascending colon polyp status post polypectomy 3 mm 2 hepatic flexure polyp status post polypectomy 3 mm 2 sigmoid colon polyps status post polypectomy RECOMMENDATIONS: Findings of this examination were discussed with the patient is a family.. She was advised to follow with the biopsy results. If the biopsy reveals adenoma she can have a repeat colonoscopy in 5 years
[2020-12-17 09:17] VITALS: BP 111/68; PULSE 68
== END 2020-12-17 09:42 | disposition home or self-care (01) ==
LOC: ORWHC2ENDO 07:52
PROVIDERS: ATTEND Internal Medicine Gastroenterology
DX: Z12.11 Encounter for screening for malignant neoplasm of colon (principal); D12.2 Benign neoplasm of ascending colon; D12.3 Benign neoplasm of transverse colon; K21.9 Gastro-esophageal reflux disease without esophagitis; G43.909 Migraine, unspecified, not intractable, without status migrainosus; Z87.442 Personal history of urinary calculi; Z79.899 Other long term (current) drug therapy; Z88.8 Allergy status to other drugs, medicaments and biological substances; Z88.2 Allergy status to sulfonamides; F17.200 Nicotine dependence, unspecified, uncomplicated; T75.3XXA Motion sickness, initial encounter; Z79.82 Long term (current) use of aspirin
CPT/HCPCS: 45385; 88305; J2704

== ENCOUNTER → 2021-09-23 | Outpatient (CLI) | payer MEDICARE, OTHER ==
--- NOTE | 2021-09-23 15:00 | CT ---
EXAMINATION TYPE: CT urogram wo/w con DATE OF EXAM: 09/23/2021 COMPARISON: 05/14/2016 HISTORY: 66-year-old N1 3.39, hydronephrosis and blood in urine. History of kidney stones and prior l ithotripsies. TECHNIQUE: Contiguous axial scanning of the abdomen and pelvis performed without and with IV Contrast , patient injected with 80 mL of Isovue 300. Delayed images through the kidneys and bladder were obta ined. Coronal/sagittal reconstructions performed.. Reconstructions generated on an workstation. CT DLP: 3249 mGycm Automated exposure control for dose reduction was used. FINDINGS: Heart normal size without pericardial effusion. Some strandy atelectasis posterior right lower lobe. No pleural effusion. No focal liver lesion or biliary ductal dilatation. Portal venous system is patent. Gallbladder, adrenal glands, spleen, and pancreas within normal limits. There are proximally 7 nonobstructive right renal calculi. Many are tiny punctate calculi, largest me asures 6 mm. On the left, approximately 5 nonobstructing calculi measuring up to 8 mm. No hydronephrosis or suspicious renal mass. No abnormal filling defect within the renal collecting sy stems. The distal third right ureter remains nonopacified. No obvious filling defect or abnormal wall thickening along either ureter. Mild to moderate atherosclerotic plaque infrarenal abdominal aorta with mild up to 2.5 cm. No dilated small bowel, free fluid, free air. No mesenteric or retroperitoneal lymphadenopathy. Normal appendix. Moderate stool burden. No pericolonic inflammatory change. Bladder partially distended. No abnormal filling defect seen along the posterior half of the opacifie d bladder. Uterus surgically absent. Neither ovary clearly visualized. No abnormal fluid collection t he pelvis or pelvic lymphadenopathy. Bones: Mild degenerative change at the hips. No osseous destructive process. IMPRESSION: 1. BILATERAL NONOBSTRUCTIVE NEPHROLITHIASIS MEASURING UP TO 6 MM ON THE RIGHT AND 8 MM ON THE LEFT. N O HYDRONEPHROSIS. 2. NO SUSPICIOUS RENAL MASS OR COLLECTING SYSTEM LESION SEEN.
== END | disposition home or self-care (01) ==
LOC: RADCTMAIN 11:25
PROVIDERS: ATTEND Urology
DX: N20.0 Calculus of kidney (principal)
CPT/HCPCS: 82565; 84520; 74178; 36415; 74400; Q9967

== ENCOUNTER → 2022-10-25 | Outpatient (CLI) | payer MEDICARE, OTHER ==
--- NOTE | 2022-10-25 22:33 | CTL ---
EXAMINATION TYPE: CT Low Dose Lung DATE OF EXAM ORDERED: 10/25/2022 HISTORY: 67-year-old female Z1 2.2, screening, F1 7.210 nicotine dependence. Current smoker with 25 p ack-year history. Lung cancer screening CT DLP: 73.[address] CTDI: 2.10 mGy Automated exposure control for dose reduction was used. SCREENING VISIT: Baseline COMPARISON: None TECHNIQUE: Low dose computed tomography scan was performed through the chest with coronal and sagitta l reconstructions. CT DIAGNOSTIC QUALITY: Satisfactory FINDINGS: The heart is normal size without pericardial effusion. Aortic root borderline ectatic at 3.7 cm. Conventional arch vessel branching anatomy. No thoracic lymphadenopathy by CT size criteria. Moderate centrilobular emphysema. Mild diffuse bronchial wall thickening. Strandy atelectasis and sca rring in the lower lungs. No consolidation or pleural effusion. No suspicious pulmonary nodule or mass. Benign calcified granuloma posterior right midlung, axial image 183. 2 mm pulmonary nodule lateral left midlung, axial image 107. Tiny hiatal hernia. Visualized upper abdomen shows some unusual central hypodensity within the right kidney measuring 3.4 cm effacing the normal renal sinus fat. Punctate 2 mm nonobstructive right renal calculus. Further contrast enhanced CT evaluation is recommended as this is a change from 09/23/2021. Bones: No osseous destructive process. IMPRESSION: 1. LungRADS 2, benign. A tiny benign calcified granuloma and a tiny 2 mm pulmonary nodule on baseline screening. 2. COPD with moderate emphysema. Recommend smoking cessation. 3. Scattered areas of strandy scarring or atelectasis in the lower lungs. 4. New central hypodensity within the right kidney measuring up to 3.4 cm effacing the normal renal s inus fat. This is only partially visualized but appears to be a change from 09/23/2021. Recommend cont rast enhanced CT of the abdomen and pelvis to further evaluate. CT LUNG RAD AND CT CHEST RECOMMENDATION: Lung-Rad 2 Benign Appearance or Behavior: Continue annual sc reening with LDCT in 12 months. S Modifier (other clinically significant findings): S, further assessment of the right kidney with a contrast-enhanced CT abdomen/pelvis.
== END | disposition home or self-care (01) ==
LOC: RADCTMAIN 12:43
PROVIDERS: ATTEND Family Medicine
DX: Z12.2 Encounter for screening for malignant neoplasm of respiratory organs (principal); F17.210 Nicotine dependence, cigarettes, uncomplicated; J43.2 Centrilobular emphysema; J84.10 Pulmonary fibrosis, unspecified
CPT/HCPCS: 71271

== ENCOUNTER → 2022-11-14 | Outpatient (CLI) | payer MEDICARE, OTHER ==
[2022-11-14 11:24] LABS: African American GFR (CKD) 75 (>60 ml/min/1.73 sqM); Blood Urea Nitrogen 16 mg/dL (7-17); Non-African American GFR(CKD) 65 (>60 ml/min/1.73 sqM)
--- NOTE | 2022-11-14 13:18 | CT ---
EXAMINATION TYPE: CT abdomen pelvis w con CT DLP: 729.4 mGycm, Automated exposure control for dose reduction was used. DATE OF EXAM: 11/14/2022 12:48 PM COMPARISON: CT urogram 09/23/2021, CT 10/25/[address] abdomen 05/14/2016 CLINICAL INDICATION:Female, 67 years old with history of renal mass TECHNIQUE: Axial CT of the abdomen and pelvis. Sagittal and coronal reformats were created on a Mobile [employer] Case workstation. Contrast used:100 mL of Isovue 300 with IV Contrast, (none if empty) Oral contrast used: with Oral Contrast (none if empty) FINDINGS: LOWER CHEST: Unremarkable ABDOMEN LIVER: Unremarkable GALLBLADDER AND BILE DUCTS: Unremarkable. PANCREAS: Unremarkable. SPLEEN: Unremarkable. ADRENAL GLANDS: Unremarkable. KIDNEYS AND URETERS: No evidence for renal mass findings similar to prior exams. Mild right collectin g system dilation without obstructing calculus. The left kidney demonstrates nonobstructing calculi m easuring up to 8 mm No evidence for right renal calculus. BLADDER: Unremarkable REPRODUCTIVE: Unremarkable. ABDOMEN & PELVIS STOMACH AND BOWEL: No evidence of bowel obstruction. PERITONEUM/RETROPERITONEUM: No evidence of pneumoperitoneum or free fluid. VASCULATURE: No evidence of aortic aneurysm. MUSCULOSKELETAL: No acute osseous abnormalities LYMPH NODES: No gross evidence for lymphadenopathy. SOFT TISSUE/ABDOMINAL WALL: Unremarkable IMPRESSION: 1. No evidence of renal mass, findings similar to 09/23/2021 and 05/14/2016. Finding on prior CT 023 are likely due to slice selection and noncontrast technique. 2. Nonobstructing left renal calculus. 3. Mild dilation of the right renal collecting system without obstructing calculus. 4. No acute abdominal process. No masses identified.
== END | disposition home or self-care (01) ==
LOC: RADCTMAIN 10:30
PROVIDERS: ATTEND Family Medicine
DX: N20.0 Calculus of kidney (principal); N28.89 Other specified disorders of kidney and ureter
CPT/HCPCS: 82565; 84520; 74177; 36415; Q9967

== ENCOUNTER → 2022-11-14 | Outpatient (CLI) | payer MEDICARE, OTHER ==
[2022-11-14 09:37] VITALS: BP 115/74; PULSE 71; RESP 18; TEMP 97.8
--- NOTE | 2022-11-14 10:32 | P.HPOB ---
History of Present Illness H&P Date: 11/14/22 Chief Complaint: The patient is here for her routine gynecologic exam and ma mmogram. This is a 67-year-old with an LMP of 1985. She is status post [facility] with unilateral oophorectomy in 1985 for benign reasons. The patient is without gynecologic complaints. She states she is undergoing a workup for a kidney density that was found on [address] done for her many years of smoking. Review of Systems Her weight has been stable over the past 2 years. She denies respiratory or cardiac problems. GI: Occasional IBS symptoms. : She has a history of chronic hematuria and kidney stones. She denies new UTI symptoms. Past Medical History Past Medical History: GERD/Reflux, Hyperlipidemia, Osteoarthritis (OA), Thyroid Disorder Additional Past Medical History / Comment(s): migraines, kidney stones. Chronic hematuria. 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 History of endometriosis. Possible JANAE exposure per the patient. No history of cervical abnormalities. History of Any Multi-Drug Resistant Organisms: None Reported Past Surgical History: Hysterectomy, Tubal Ligation Additional Past Surgical History / Comment(s): lithrotripsy/stents, polyps removed from nose and throat. ANG with unilateral oophorectomy in 1985. Past Anesthesia/Blood Transfusion Reactions: Motion Sickness, Postoperative Nausea & Vomiting (PONV) Past Psychological History: Depression (PHQ-2 depression screening score: 0) Smoking Status: Current every day smoker (Half pack per day.) Past Alcohol Use History: Rare (One per year.) Additional Past Alcohol Use History / Comment(s): has smoked since age 19 Past Drug Use History: None Reported Additional History: She has been since 1974 and is retired. - Past Family History Mother Family Medical History: Diabetes Mellitus, Myocardial Infarction (MA) Additional Family Medical History / Comment(s): Aortic aneurysm. Sister(s) Family Medical History: Cancer Additional Family Medical History / Comment(s): breast cancer in 2 sisters. She states one sister tested negative for BRCA. Father Family Medical History: Cancer Additional Family Medical History / Comment(s): Colon cancer. Medications and Allergies Home Medications Medication Instructions Recorded Confirmed Type Aspirin [Adult Low Dose Aspirin EC] 81 mg PO DAILY 12/13/16 11/14/22 History SUMAtriptan succinate [Imitrex] 100 mg PO DIRECTED PRN 12/13/16 11/14/22 History Citalopram Hydrobromide [CeleXA] 30 mg PO DAILY 11/16/20 11/14/22 History Montelukast [Singulair] 10 mg PO HS 11/16/20 11/14/22 History Allergies Allergy/AdvReac Type Severity Reaction Status Date / Time oxybutynin Allergy Anaphylaxis Verified 11/14/22 09:28 Sulfa (Sulfonamide Allergy Unknown Verified 11/14/22 09:28 Antibiotics) Childhood Exam Vital Signs Temp Pulse Resp BP Pulse Ox 11/14/22 09:28 97.8 F 71 18 115/74 97 Intake and Output 11/13/22 11/14/22 11/14/22 22:59 06:59 14:59 Other: Weight 73.028 kg Height 5 feet 2-1/2 inches, weight 161 pounds, BMI 29.0. This is a well-developed well-nourished white female who is alert and oriented times 3 in no acute distress. HEENT: Within normal limits. NECK: Supple without mass or thyromegaly. CHEST AND LUNGS: Clear to auscultation. HEART: Regular rate and rhythm. BREASTS: Are without mass or discharge. AXILLARY EXAM: Negative for adenopathy. BACK: Negative for CVA tenderness. ABDOMEN: Soft, nontender, without palpable masses. PELVIC EXAM: External genitalia appears normal with mild atrophy. Vagina appears normal with mild atrophy. There is no evidence of prolapse. Bimanual examination is negative for mass or tenderness. RECTAL EXAM: Rectovaginal exam is negative for mass or tenderness and is negative for occult blood. EXTREMITIES: Nontender. IMPRESSION: 1. 67-year-old menopausal female status post total abdominal hysterectomy with unilateral oophorectomy for benign reasons. 2. Family history of breast cancer in 2 sisters and colon cancer in her father. PLAN: 1. Pap smears have been discontinued. 2. Self breast awareness was discussed with the patient. We have also discussed symptoms associated with inflammatory breast cancer. 3. Screening mammogram will be done today. 4. Osteoporosis prevention was discussed. I have stressed the importance of adequate calcium, vitamin D and regular exercise. Recommended amounts of calcium and vitamin D were also discussed. I have recommended a bone density test since it has been many years since she has had this done. The order slip was given to the patient for this. 5. We've had a long discussion regarding cancer genetics testing and counseling. Because of her strong family history of breast cancer in 2 sisters and colon cancer, and her father, I have offered her cancer genetic counseling and possible testing. She would like to do this. She will be referred to the [facility]. 6. Colorectal cancer screening was discussed. She believes her last colonoscopy was approximately 2018. She will probably be due for this again within the next couple of years since her father had colon cancer. She will discuss this with her PCP. 7. I have recommended that she quit smoking. We have discussed many reasons why this is important. 8. She will follow up with her PCP regarding her history of kidney stones, chronic hematuria, and the apparent density noted on a kidney with a CT scan. 9. She was advised to return in one year for her annual well woman exam.
--- NOTE | 2022-11-15 08:00 | MM ---
Reason for Exam: Screening (asymptomatic). Last mammogram was performed 2 year(s) and 0 month(s) ago. Patient History: Menarche at age 13. First Full-Term at age 20. Left ovary removed at age 31. Hysterectomy at age 31. Postmenopausal. Patient used Estrogen for 3 years. Patient used Hormonal Contraceptives for 3 years. Paternal aunt had breast cancer. Sister had breast cancer, age 67. Sister had breast cancer, age 68. Risk Values: Grecia 5 year model risk: 7.9%. NCI Lifetime model risk: 25.7%. Prior Study Comparison: 04/30/2018 Bilateral Screening Mammogram, [facility]. 11/16/2020 Bilateral Screening Mammogram, [facility]. 11/25/2020 Right Diagnostic Mammogram, [facility]. Tissue Density: The breast tissue is heterogeneously dense. This may lower the sensitivity of mammography. Findings: Analyzed By CAD. There is no suspicious group of microcalcifications or new suspicious mass in either breast. Overall Assessment: Negative, BI-RAD 1 Management: Screening Mammogram of both breasts in 1 year. . Patient should continue monthly self-breast exams. A clinical breast exam by your physician is recommended on an annual basis. This exam should not preclude additional follow-up of suspicious palpable abnormalities. Note on Grecia scores and lifetime risk: 1. A Grecia score greater than 3% is considered moderate risk. If this is the case, consider specialist referral to assess eligibility for a risk reducing agent. 2. If overall lifetime risk for the development of breast cancer is 20% or higher, the patient may qualify for future screening with alternating mammogram and breast MRI. Electronically signed and approved by: [place] M.D. Radiologis
== END ==
LOC: WWCWWP 09:09
PROVIDERS: ATTEND Obstetrics & Gynecology
DX: K21.9 Gastro-esophageal reflux disease without esophagitis (principal); F17.210 Nicotine dependence, cigarettes, uncomplicated; E78.5 Hyperlipidemia, unspecified; M19.90 Unspecified osteoarthritis, unspecified site; E07.9 Disorder of thyroid, unspecified; Z78.0 Asymptomatic menopausal state; Z80.3 Family history of malignant neoplasm of breast; Z12.31 Encounter for screening mammogram for malignant neoplasm of breast; Z87.442 Personal history of urinary calculi; Z90.710 Acquired absence of both cervix and uterus; Z88.1 Allergy status to other antibiotic agents; Z88.2 Allergy status to sulfonamides; Z90.721 Acquired absence of ovaries, unilateral
CPT/HCPCS: 77063; 77067

== ENCOUNTER → 2023-10-30 | Outpatient (CLI) | payer MEDICARE, OTHER ==
--- NOTE | 2023-10-30 11:38 | XR ---
EXAMINATION TYPE: XR KUB DATE OF EXAM: 10/30/2023 COMPARISON: CT scan 11/14/2022 HISTORY: Pain TECHNIQUE: One view abdominal series FINDINGS: The osseous structures are intact. The bowel gas pattern is nonspecific. Right kidney: Obscured by bowel content. No definite suspicious calcifications. Left kidney: There are multiple mid and lower pole left renal calculi measuring approximately 2 to 3 mm. Calcifications in the pelvis are nonspecific and too small to characterize. IMPRESSION: 1. Multiple tiny left renal calculi.
--- NOTE | 2023-10-30 11:39 | CTL ---
EXAMINATION TYPE: CT Low Dose Lung DATE OF EXAM ORDERED: 10/30/2023 HISTORY: Current smoker, 25 pack-year history. Lung cancer screening CT DLP: 85.[address] CTDI: 2.4 mGy Automated exposure control for dose reduction was used. SCREENING VISIT: Follow-up COMPARISON: CT low-dose 10/25/2022, CT abdomen and pelvis 11/14/2022 TECHNIQUE: Low dose computed tomography scan was performed through the chest at 1 mm thick sections a nd reconstructed images in multiple planes at 1 mm and [address] DIAGNOSTIC QUALITY: Satisfactory FINDINGS: Nodules: Benign calcified granuloma posterior right lower lobe (series 4, image 175). Stable left midlung 2 mm pulmonary nodule (series 4, and 101). No new or enlarging pulmonary nodules. LUNGS: COPD: Severity: Mild centrilobular emphysematous changes Fibrosis: Severity: None Lymph nodes: None Other findings: None RIGHT PLEURAL SPACE: Effusion: None Calcification: None Thickening: None Pneumothorax: None LEFT PLEURAL SPACE: Effusion: None Calcification: None Thickening: None Pneumothorax: None HEART: Heart Size: Normal Coronary Calcification: Mild Pericardial Effusion: None OTHER FINDINGS: Upper abdomen: Nonobstructive 3 mm left renal calculus. Additional nonobstructing punctate right belle l calculi. Bony thorax: None Supraclavicular region: None Other: None IMPRESSION: 1. Stable few pulmonary nodules. No new or enlarging pulmonary nodules. 2. Mild COPD changes. 3. Nonobstructive bilateral renal calculi. CT LUNG RAD AND CT CHEST RECOMMENDATION: Lung-Rad 2 Benign Appearance or Behavior: Continue annual sc reening with LDCT in 12 months. S Modifier (other clinically significant findings): None
== END | disposition home or self-care (01) ==
LOC: RADCTMAIN 11:08
PROVIDERS: ATTEND Family Medicine
DX: Z12.2 Encounter for screening for malignant neoplasm of respiratory organs (principal); N20.0 Calculus of kidney; J44.9 Chronic obstructive pulmonary disease, unspecified; F17.210 Nicotine dependence, cigarettes, uncomplicated; R91.8 Other nonspecific abnormal finding of lung field
CPT/HCPCS: 71271; 74018

== ENCOUNTER → 2024-02-05 | Outpatient (CLI) | payer MEDICARE, OTHER ==
[2024-02-05 14:04] VITALS: BP 114/75; PULSE 77; RESP 16; TEMP 97.9
--- NOTE | 2024-02-05 14:48 | P.HPOB ---
History of Present Illness H&P Date: 02/05/24 Chief Complaint: The patient is here for her routine gynecologic exam and ma mmogram. This is a 68-year-old G2, P2 with an LMP of 1985. The patient is status post ANG with unilateral oophorectomy in 1985 for benign reasons the patient states she has had some issues with some kidney stones. She noted that after a kidney stone had passed, she has been having some issues with occasional urge incontinence. She can have leakage if she does not get to the bathroom in time. She is without gynecologic complaints. Review of Systems The patient's weight has been stable over the last year. She denies respiratory, cardiac, or G.I. problems. : Some urinary urge incontinence. Please see the HPI. Past Medical History Past Medical History: GERD/Reflux, Hyperlipidemia, Osteoarthritis (OA), Thyroid Disorder Additional Past Medical History / Comment(s): migraines, kidney stones. Hypothyroidism. 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 History of endometriosis. Possible JANAE exposure per the patient. No history of cervical abnormalities. History of Any Multi-Drug Resistant Organisms: None Reported Past Surgical History: Hysterectomy, Tubal Ligation Additional Past Surgical History / Comment(s): lithrotripsy/stents, polyps removed from nose and throat. ANG with unilateral oophorectomy in 1985. Past Anesthesia/Blood Transfusion Reactions: Motion Sickness, Postoperative Nausea & Vomiting (PONV) Past Psychological History: Depression Smoking Status: Current every day smoker (About a half a pack of cigarettes per day.) Past Alcohol Use History: Rare (1-2 drinks per year.) Additional Past Alcohol Use History / Comment(s): has smoked since age 19 Past Drug Use History: None Reported Additional History: She has been since 1974 and is sexually active. She is retired. - Past Family History Mother Family Medical History: Diabetes Mellitus, Myocardial Infarction (MS) Additional Family Medical History / Comment(s): Aortic aneurysm. Sister(s) Family Medical History: Cancer Additional Family Medical History / Comment(s): breast cancer in 2 sisters. She states one sister tested negative for BRCA. Father Family Medical History: Cancer Additional Family Medical History / Comment(s): Colon cancer. Medications and Allergies Home Medications Medication Instructions Recorded Confirmed Type Aspirin [Adult Low Dose Aspirin EC] 81 mg PO DAILY 12/13/16 02/05/24 History SUMAtriptan succinate [Imitrex] 100 mg PO DIRECTED PRN 12/13/16 02/05/24 History Citalopram Hydrobromide [CeleXA] 30 mg PO DAILY 11/16/20 02/05/24 History Montelukast [Singulair] 10 mg PO HS 11/16/20 02/05/24 History Levothyroxine Sodium [Tirosint] 50 mg PO DAILY 02/05/24 02/05/24 History Allergies Allergy/AdvReac Type Severity Reaction Status Date / Time oxybutynin Allergy Anaphylaxis Verified 02/05/24 14:01 Sulfa (Sulfonamide Allergy Unknown Verified 02/05/24 14:01 Antibiotics) Childhood Exam Vital Signs Temp Pulse Resp BP Pulse Ox 02/05/24 14:02 97.9 F 77 16 114/75 98 Intake and Output 02/04/24 02/05/24 02/05/24 22:59 06:59 14:59 Other: Weight 73.028 kg Height 5 feet 2 inches, weight 161 pounds, BMI 29.4. This is a well-developed well-nourished white female who is alert and oriented times 3 in no acute distress. HEENT: Within normal limits. NECK: Supple without mass or thyromegaly. CHEST AND LUNGS: Clear to auscultation. HEART: Regular rate and rhythm. BREASTS: Are without mass or discharge. AXILLARY EXAM: Negative for adenopathy. BACK: Negative for CVA tenderness. ABDOMEN: Soft, nontender, without palpable masses. PELVIC EXAM: External genitalia appears normal with mild to moderate atrophy. Vagina appears normal with mild atrophy. There is no evidence of prolapse. There is mild urethral mobility with coughing. No urinary leakage was demonstrated. Bimanual examination is negative for mass or tenderness. RECTAL EXAM: Rectovaginal exam is negative for mass or tenderness and is negative for occult blood. EXTREMITIES: Nontender. IMPRESSION: 1. 68-year-old menopausal female status post ANG with unilateral oophorectomy for benign reasons, with normal gynecologic exam. 2. Mild urinary urge incontinence with no significant physical findings on exam today. PLAN: 1. Pap smears have been discontinued. 2. Self breast awareness was discussed with the patient. We have also discussed symptoms associated with inflammatory breast cancer. 3. Screening mammogram will be done today. 4. Osteoporosis prevention was discussed. I have stressed the importance of adequate calcium, vitamin D and regular exercise. Recommended amounts of calcium and vitamin D were also discussed. I have recommended bone density testing since it has been many years since she is done this. She is declining it at this time, but states she will do it next year at her annual examination. 5. We have discussed possible causes for urinary incontinence. I have recommended regular Kegel exercises and trying to empty the bladder as completely as possible when she does void. Also discussed trying to not let the bladder get very full. Instructions on doing Kegel exercises were discussed. If she continues to have issues with incontinence, she will discuss this further with her urologist. 6. I have recommended quitting smoking. We have discussed many reasons why this is important. 7. She was advised to return in one year for her annual well woman exam and as needed.
--- NOTE | 2024-02-06 11:41 | MM ---
Reason for Exam: Screening (asymptomatic). Last mammogram was performed 1 year(s) and 2 month(s) ago. Patient History: Menarche at age 13. First Full-Term at age 20. Left ovary removed at age 31. Hysterectomy at age 31. Postmenopausal. Patient used Estrogen for 3 years. Patient used Hormonal Contraceptives for 3 years. Paternal aunt had breast cancer. Sister had breast cancer, age 67. Sister had breast cancer, age 68. Risk Values: Grecia 5 year model risk: 8.0%. NCI Lifetime model risk: 24.9%. Prior Study Comparison: 11/16/2020 Bilateral Screening Mammogram, [facility]. 11/25/2020 Right Diagnostic Mammogram, [facility]. 11/14/2022 Bilateral MG 3D screening mammo w/cad, [facility]. Tissue Density: There are scattered areas of fibroglandular density. Findings: Analyzed By CAD. Right breast: There is no suspicious group of microcalcifications or new suspicious mass. Left breast: There is no suspicious group of microcalcifications or new suspicious mass. Overall Assessment: Negative, BI-RAD 1 Management: Screening Mammogram of both breasts in [address] [facility] will attempt to contact patient to return for supplemental views and ultrasound if indicated. Patient should continue monthly self-breast exams. A clinical breast exam by your physician is recommended on an annual basis. This exam should not preclude additional follow-up of suspicious palpable abnormalities. Note on Grecia scores and lifetime risk: 1. A Grecia score greater than 3% is considered moderate risk. If this is the case, consider specialist referral to assess eligibility for a risk reducing agent. 2. If overall lifetime risk for the development of breast cancer is 20% or higher, the patient may qualify for future screening with alternating mammogram and breast MRI. [facility], , 02/06/2024 11:38 AM. Electronically signed and approved by: Valentin Arce DO
== END ==
LOC: WWCWWP 13:49
PROVIDERS: ATTEND Obstetrics & Gynecology
CPT/HCPCS: 77063; 77067